=== PATIENT | male | born 1995 | race Two or more races ===

== ENCOUNTER 2023-10-29 17:33 | Emergency (ER) | payer BC, OTHER ==
[2023-10-29] MEDS: Orphenadrine 60 MG/2 ML Inj IM ONE (18:38)
[2023-10-29] MEDS: Ketorolac 30 MG/ML SDV IM ONE (18:38)
[2023-10-29] MEDS: Lidocaine 4% 1 each Patch TOP STA (18:38)
[2023-10-29] MEDS: Acetaminophen/oxyCODONE 325-5 MG Tab PO ONE (19:38)
== END 2023-10-29 19:51 | disposition home or self-care (01) ==
LOC: MW.ED 17:33
DX: S16.1XXA Strain of muscle, fascia and tendon at neck level, initial encounter (principal); F17.210 Nicotine dependence, cigarettes, uncomplicated; Z79.899 Other long term (current) drug therapy; Z75.8 Other problems related to medical facilities and other health care; V49.40XA Driver injured in collision with unspecified motor vehicles in traffic accident, initial encounter
CPT/HCPCS: 72040; 73030; 96372; 99284; A9270; J1885; J2360